=== PATIENT | male | born 1965 | race Caucasian/White ===

== ENCOUNTER 2016-05-29 12:22 | Emergency (ER) | payer OTHER ==
[2016-05-29] MEDS ORDERED: NICOTINE 21 MG/24 HR PATCH.TD24 TD ONE (13:38)
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
[2016-05-29] MEDS ORDERED: AMPICILLIN SOD/SULBACTAM 3 GM VIAL IV ONE (13:44)
[2016-05-29 13:55] LABS: APPEARANCE,URINE CLEAR; BILIRUBIN,URINE NEGATIVE (NEGATIVE); GLUCOSE, URINE NEGATIVE (NEGATIVE); KETONES,URINE NEGATIVE (NEGATIVE); LEUKOCYTE ESTERASE,URINE TRACE (NEGATIVE); NITRITE,URINE NEGATIVE (NEGATIVE); PROTEIN,URINE NEGATIVE (NEGATIVE); URINE SPECIFIC GRAVITY 1.011; UROBILINOGEN,URINE NEGATIVE mg/dL (<2.0)
[2016-05-29 13:58] LABS: ABSOLUTE BASOPHILS # (AUTO) 0.1 10^3/uL (0.0-0.2); ABSOLUTE EOSINOPHILS # (AUTO) 0.3 10^3/uL (0.0-0.6); ABSOLUTE LYMPHOCYTES (AUTO) 3.5 10^3/uL (0.5-4.7); ABSOLUTE MONOCYTES (AUTO) 0.7 10^3/uL (0.1-1.4); ABSOLUTE NEUT (AUTO) 7.1 10^3/uL (1.7-8.2); BASOPHILS % (AUTO) 0.6 % (0-2); EOSINOPHILS % (AUTO) 2.4 % (0-6); HEMATOCRIT 45.9 % (37.9-51.0); HEMOGLOBIN 15.2 g/dL (13.5-17.0); HGB HCT DIFFERENCE -0.3; LYMPHOCYTES % (AUTO) 29.9 % (13-45); MEAN CORPUSCULAR HEMOGLOBIN 28.1 pg (27.0-33.4); MEAN CORPUSCULAR HGB CONC 33.2 g/dL (32.0-36.0); MEAN CORPUSCULAR VOLUME 85 fl (80-97); MONOCYTES % (AUTO) 5.9 % (3-13); RED BLOOD COUNT 5.42 10^6/uL (4.35-5.55); RED CELL DISTRIBUTION WIDTH 16.2 % (11.5-14.0); SEGMENTED NEUTROPHILS % (AUTO) 61.2 % (42-78); WHITE BLOOD COUNT 11.5 10^3/uL (4.0-10.5)
[2016-05-29 14:05] LABS: URINE BARBITURATES SCREEN NEGATIVE; URINE OPIATES LOW NEGATIVE; URINE PHENCYCLIDINE SCREEN NEGATIVE
[2016-05-29 14:08] LABS: URINE METHADONE SCREEN NEGATIVE
[2016-05-29 14:12] LABS: ALANINE AMINOTRANSFERASE 26 U/L (21-72); ALBUMIN 4.2 g/dL (3.5-5.0); ALKALINE PHOSPHATASE 95 U/L (38-126); ANION GAP 12 (5-19); ASPARTATE AMINO TRANSFERASE 19 U/L (17-59); BILIRUBIN,TOTAL 0.7 mg/dL (0.2-1.3); BLOOD UREA NITROGEN 9 mg/dL (7-20); CALCIUM 9.7 mg/dL (8.4-10.2); CARBON DIOXIDE 26 mmol/L (22-30); CHLORIDE 104 mmol/L (98-107); CREATININE RESULT 0.85 mg/dL (0.52-1.25); GLUCOSE 98 mg/dL (75-110); POTASSIUM 4.2 mmol/L (3.6-5.0); SODIUM 141.9 mmol/L (137-145); TOTAL PROTEIN 7.1 g/dL (6.3-8.2)
[2016-05-29 14:13] LABS: ALCOHOL < 10 mg/dL (NONE DETECTED)
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
[2016-05-29] MEDS ORDERED: OLANZAPINE 5 MG TAB.RAPDIS PO ONE (15:33)
[2016-05-29] MEDS: LEVETIRACETAM 500 MG TABLET PO SCH (18:48)
--- NOTE | 2016-05-29 20:14 | EKG REPORT ---
SEVERITY:- ABNORMAL ECG - SINUS RHYTHM PROBABLE INFERIOR INFARCT, AGE INDETERMINATE NONSPECIFIC ANTEROLATERAL ST-T CHANGES. : Confirmed by: Spike Spaulding MD 29-May-2016 20:13:47
[2016-05-29] MEDS ORDERED: QUETIAPINE FUMARATE 25 MG TABLET PO SCH (22:00)
[2016-05-30] MEDS ORDERED: IBUPROFEN 600 MG TABLET PO ONE (01:23)
[2016-05-30] MEDS ORDERED: VENLAFAXINE HCL 75 MG TABLET PO SCH (10:00)
[2016-05-30] MEDS: OLANZAPINE 5 MG TAB.RAPDIS PO PRN ×4 (10:15→18:22)
[2016-05-30] MEDS: LEVETIRACETAM 500 MG TABLET PO SCH ×2 (10:19→18:21)
[2016-05-30] MEDS: METHADONE HCL 10 MG TABLET PO SCH ×3 (10:20→18:21)
[2016-05-30] MEDS ORDERED: CLONIDINE HCL 0.1 MG TABLET PO ONE (12:33)
[2016-05-30 19:21] VITALS: BP 161/98
== END 2016-05-30 19:05 | disposition home or self-care (01) ==
LOC: ER 12:22
DX: R45.851 Suicidal ideations (principal); R45.4 Irritability and anger; F32.9 Major depressive disorder, single episode, unspecified; F11.99 Opioid use, unspecified with unspecified opioid-induced disorder; G89.4 Chronic pain syndrome; F17.210 Nicotine dependence, cigarettes, uncomplicated; F43.10 Post-traumatic stress disorder, unspecified; I10 Essential (primary) hypertension; Z87.442 Personal history of urinary calculi
CPT/HCPCS: 93005; 99285; 36415; 80307 ×4; 85025; 80053; 81001; 93010; J3490 ×2

== ENCOUNTER 2016-06-07 19:39 | Emergency (ER) | payer OTHER ==
[2016-06-07 21:08] LABS: APPEARANCE,URINE CLEAR; BILIRUBIN,URINE NEGATIVE (NEGATIVE); GLUCOSE, URINE NEGATIVE (NEGATIVE); KETONES,URINE NEGATIVE (NEGATIVE); LEUKOCYTE ESTERASE,URINE TRACE (NEGATIVE); NITRITE,URINE NEGATIVE (NEGATIVE); PROTEIN,URINE NEGATIVE (NEGATIVE); URINE SPECIFIC GRAVITY 1.003; UROBILINOGEN,URINE NEGATIVE mg/dL (<2.0)
[2016-06-07 21:23] LABS: URINE BARBITURATES SCREEN NEGATIVE; URINE METHADONE SCREEN NEGATIVE; URINE OPIATES LOW NEGATIVE; URINE PHENCYCLIDINE SCREEN NEGATIVE
[2016-06-07 21:49] LABS: ABSOLUTE BASOPHILS # (AUTO) 0.2 10^3/uL (0.0-0.2); ABSOLUTE EOSINOPHILS # (AUTO) 0.4 10^3/uL (0.0-0.6); ABSOLUTE LYMPHOCYTES (AUTO) 4.5 10^3/uL (0.5-4.7); ABSOLUTE NEUT (AUTO) 8.3 10^3/uL (1.7-8.2); BASOPHILS % (AUTO) 1.2 % (0-2); HEMATOCRIT 42.9 % (37.9-51.0); HEMOGLOBIN 14.4 g/dL (13.5-17.0); HGB HCT DIFFERENCE 0.3; LYMPHOCYTES % (AUTO) 31.1 % (13-45); MEAN CORPUSCULAR HEMOGLOBIN 28.3 pg (27.0-33.4); MEAN CORPUSCULAR HGB CONC 33.5 g/dL (32.0-36.0); MEAN CORPUSCULAR VOLUME 84 fl (80-97); RED BLOOD COUNT 5.08 10^6/uL (4.35-5.55); RED CELL DISTRIBUTION WIDTH 15.8 % (11.5-14.0); SEGMENTED NEUTROPHILS % (AUTO) 57.7 % (42-78); WHITE BLOOD COUNT 14.3 10^3/uL (4.0-10.5)
[2016-06-07 22:07] LABS: ALANINE AMINOTRANSFERASE 30 U/L (21-72); ALBUMIN 4.2 g/dL (3.5-5.0); ALKALINE PHOSPHATASE 102 U/L (38-126); ANION GAP 11 (5-19); ASPARTATE AMINO TRANSFERASE 20 U/L (17-59); BLOOD UREA NITROGEN 6 mg/dL (7-20); CALCIUM 9.7 mg/dL (8.4-10.2); CARBON DIOXIDE 25 mmol/L (22-30); CHLORIDE 107 mmol/L (98-107); CREATININE RESULT 0.75 mg/dL (0.52-1.25); GLUCOSE 80 mg/dL (75-110); POTASSIUM 3.6 mmol/L (3.6-5.0); SODIUM 143.4 mmol/L (137-145); TOTAL PROTEIN 7.2 g/dL (6.3-8.2)
[2016-06-07 22:10] LABS: ALCOHOL < 10 mg/dL (NONE DETECTED)
--- NOTE | 2016-06-08 00:01 | ER Document Report ---
ED Psych Disorder / Suicide - General Chief Complaint: Psych Problem Stated Complaint: IVC W/PAPERS Time seen by provider: 00:01 Mode of Arrival: Ambulatory Information source: Patient TRAVEL OUTSIDE OF THE [place] IN LAST 30 DAYS: No - HPI Patient complains to provider of: Suicidal ideation Onset was: Cannot confirm Quality of pain: Achy Severity: Mild Suicide Risk Factors: Chronic illness, Depressed, Male Normal mood: No Associated symptoms: Angry, Decreased appetite, Depressed Recently seen / treated by doctor: Yes Notes: Patient is a 51-year-old male who was brought to the emergency room on involuntary commitment paperwork that was completed by his psychologist, stating that he continues to exhibit emotional dysregulation and suicidal ideation. He reports sitting in his vehicle with loaded rifle in his lap. Strunk presented today for scheduled appointment for medication review. continued to report suicidal thoughts, plan, and intent. Reporting "I' m done", patient admits to these statements, he denies any active suicidal ideation or plan, just states that he's done, he is fed up, and he doesn't care what happens to him - Related Data Allergies/Adverse Reactions: fentanyl Allergy (Verified 02/29/16 16:43) promethazine HCl [From Phenergan] Allergy (Verified 11/14/13 12:30) Home Medications: Current Home Medications Quetiapine Fumarate [Seroquel] 200 mg PO QHS 06/07/16 [History] Past Medical History - General Information source: Patient, Outside Facility Records - Social History Smoking Status: Current Every Day Smoker Family History: None - Past Medical History Cardiac Medical History: Reports: Hx Hypertension Renal/ Medical History: Reports: Hx Kidney Stones Psychiatric Medical History: Reports: Hx Anxiety, Hx Depression Past Surgical History: Reports: Hx Orthopedic Surgery - right knee, left shoulder, low back - Immunizations Hx Diphtheria, Pertussis, Tetanus Vaccination: Yes Review of Systems - Review of Systems Constitutional: No symptoms reported EENT: No symptoms reported Cardiovascular: No symptoms reported Respiratory: No symptoms reported Gastrointestinal: No symptoms reported Genitourinary: No symptoms reported Male Genitourinary: No symptoms reported Musculoskeletal: No symptoms reported Skin: No symptoms reported Hematologic/Lymphatic: No symptoms reported Neurological/Psychological: See HPI -: Yes All other systems reviewed and negative Physical Exam - Vital signs Vitals: Temp Pulse Resp BP Pulse Ox 98.0 F 82 18 164/117 H 99 03/10/17 20:07 06/07/16 20:07 06/07/16 20:07 06/07/16 20:07 06/07/16 20:07 Interpretation: Hypertensive - General General appearance: Appears well, Alert - HEENT Head: Normocephalic, Atraumatic Eyes: Normal Pupils: PERRL - Respiratory Respiratory status: No respiratory distress Chest status: Nontender Breath sounds: Normal Chest palpation: Normal - Cardiovascular Rhythm: Regular Heart sounds: Normal auscultation Murmur: No - Abdominal Inspection: Normal Distension: No distension Bowel sounds: Normal Tenderness: Nontender Organomegaly: No organomegaly - Back Back: Normal, Nontender - Extremities General upper extremity: Normal inspection, Nontender, Normal color, Normal ROM , Normal temperature General lower extremity: Normal inspection, Nontender, Normal color, Normal ROM , Normal temperature, Normal weight bearing. No: Dotty's sign - Neurological Neuro grossly intact: Yes Cognition: Normal Orientation: AAOx4 [place] Coma Scale Eye Opening: Spontaneous [place] Coma Scale Verbal: Oriented Kenzie Coma Scale Motor: Obeys Commands [place] Coma Scale Total: 15 Speech: Normal Motor strength normal: LUE, RUE, LLE, RLE Sensory: Normal - Psychological Associated symptoms: Angry, Depressed - Skin Skin Temperature: Warm Skin Moisture: Dry Skin Color: Normal Course - Re-evaluation Re-evalutation: 06/08/16 04:00 Patient was brought to emergency room on IVC papers were completed by his psychologist, patient does report that team doesn't care what happens to him, and he no longer cares to live, reports that he will stop taking his medications in order to expedite this basically, although he has no active suicidal plan, he is slightly angry, with pressured speech at time of evaluation , but overall cooperative and agreeable to staying in the emergency room for further evaluation and treatment by mental health team, he is otherwise medically stable for transfer or discharge - Vital Signs Vital signs: Temp Pulse Resp BP Pulse Ox 98.0 F 82 18 164/117 H 99 06/07/16 20:07 06/07/16 20:07 06/07/16 20:07 06/07/16 20:07 06/07/16 20:07 - Laboratory Result Diagrams: 06/07/16 21:30 06/07/16 21:30 Laboratory results interpreted by me: 06/07/16 06/07/16 06/07/16 20:40 21:30 21:30 WBC 14.3 H RDW 15.8 H Absolute Neutrophils 8.3 H BUN 6 L Ur Leukocyte Esterase TRACE H Salicylates < 1.0 L Acetaminophen < 10 L Discharge - Discharge Clinical Impression: Suicidal ideation Depression Qualifiers: Depression Type: unspecified Qualified Code(s): F32.9 - Major depressive disorder, single episode, unspecified Condition: Stable Disposition: PSYCH HOSP/UNIT
[2016-06-08] MEDS ORDERED: LORAZEPAM 1 MG TABLET PO ONE (02:35)
[2016-06-08] MEDS: METOPROLOL SUCCINATE 50 MG TAB.SR.24H PO SCH ×2 (08:04→18:20)
[2016-06-08] MEDS: HYDROCHLOROTHIAZIDE 12.5 MG CAPSULE PO SCH (08:04)
[2016-06-08] MEDS: LEVETIRACETAM 500 MG TABLET PO SCH ×2 (10:22→18:20)
--- NOTE | 2016-06-08 10:49 | EKG REPORT ---
SEVERITY:- ABNORMAL ECG - SINUS RHYTHM VENTRICULAR PREMATURE COMPLEX PROBABLE INFERIOR INFARCT, AGE INDETERMINATE : Confirmed by: Sadiq Robles 08-Jun-2016 10:48:08
--- NOTE | 2016-06-08 11:15 | PSYCHOLOGICAL NOTE ---
Psych Note - Psych Note Psych Note: Patient is a 51-year-old male who was brought to the emergency room on involuntary commitment paperwork that was completed by his psychologist, stating that he continues to exhibit emotional dysregulation and suicidal ideation. He reports sitting in his vehicle with loaded rifle in his lap. presented today for scheduled appointment for medication review. Watkins continued to report suicidal thoughts, plan, and intent. Reporting "I' m done", patient admits to these statements, he denies any active suicidal ideation or plan, just states that he's done, he is fed up, and he doesn't care what happens to him. Patient states that he is in a "black hole" and that it is "killing me." He continued to state that he was doing well last week when he was taking Valium and for the first time in 2 years was intimate with his but he has ran out. HE continued to disclose that he does not understand why is it an issue for his to get the medication even thought it is a narcotic is it works. The patient was unable or unwilling to understand this is part of his addiction. The patient states that he will give everyone 2 weeks and he will try but if it doesn't work he will just sell his stuff, leave his and move back to [place] to "end it." Patient is alert and orientated to person place time and circumstance. Mood is irritable with tear affect. Patient endorses suicidal ideation denies homicidal ideation. Patient denies auditory and visual hallucinations; no delusions are noted. Thought process is organized and linear; thought content is consumed with patient's reported pain and medication. Conversational speech was loud and aggressive at times. Eye contact was well maintained. Intellectual abilities appear to be within average range. Attention and concentration are fair. Insight, judgment, impulse control are poor. 309.81 (F 43.10) [facility] 300[facility]02 (F41.1) generalized Anxiety Disorder [facility] 296.33 (F 33.2) major depressive disorder; severe; recurrent [facility] by [facility] R/O 292.9 ( F11.99) Unspecified Opiate Related Disorder Impression\\plan: Patient is recommended to continue under IVC; patient is a danger to himself and others at this time. Patient endorses suicidal ideation and has previous attempts. Patient is recommended for placement for inpatient treatment. Dr. Guajardo was consult on the care and management of this patient; Attending physician is in agreement with recommendations and disposition.
--- NOTE | 2016-06-08 17:54 | ER Document Report ---
Doctor's Note Notes: 06/08/16 17:50 This is a 51-year-old man with a history of PTSD and depression who resented to the emergency room with suicidal ideation and he has access to weapons. He is currently followed by psychiatry and we are awaiting an inpatient psychiatric bed. Patient has been anxious on interview. But he calms down after sitting down and talk with him. I think inpatient admission is a good plan for him. 06/08/16 18:04
[2016-06-08] MEDS: HYDROXYZINE PAMOATE 50 MG CAPSULE PO PRN (18:20)
[2016-06-08] MEDS ORDERED: NICOTINE 21 MG/24 HR PATCH.TD24 TD ONE (19:27)
[2016-06-08] MEDS ORDERED: LISINOPRIL 10 MG TABLET PO SCH (20:15)
[2016-06-08] MEDS ORDERED: LISINOPRIL 10 MG TABLET PO ONE (20:30)
[2016-06-08] MEDS ORDERED: TRAZODONE HCL 50 MG TABLET PO SCH (22:00)
[2016-06-08] MEDS: BUSPIRONE HCL 10 MG TABLET PO SCH (22:43)
[2016-06-08] MEDS: VENLAFAXINE HCL 37.5 MG CAP.SR.24H PO SCH (22:43)
[2016-06-09] MEDS ORDERED: LORAZEPAM 1 MG TABLET PO ONE (06:10)
[2016-06-09] MEDS ORDERED: ONDANSETRON HCL INJ/PF 4 MG/2 ML SDV IV ONE (06:10)
--- NOTE | 2016-06-09 06:11 | ER Document Report ---
Doctor's Note Notes: 06/09/16 06:10 No skin formula the patient woke up and started vomiting. I did go evaluate the patient. Patient says that he's been very anxious. Says he woke up more anxious. He says all this anxiety has led to him becoming very nauseous. He denies any pain. Denies any recent fevers or infections. I did palpate his abdomen. He has reproducible pain. His abdomen is soft and nontender. He otherwise looks well. I will give him a dose of Zofran and also Ativan hopefully help calm down his symptoms.
[2016-06-09] MEDS ORDERED: ONDANSETRON 4 MG TAB.RAPDIS PO ONE (06:15)
--- NOTE | 2016-06-09 09:15 | ER Document Report ---
Doctor's Note Notes: 06/09/16 09:14 Chart reviewed. This is a 51-year-old man with a history of PTSD and depression who resented to the emergency room with suicidal ideation. He is currently followed by psychiatry and we are awaiting an inpatient psychiatric bed. He states that he had some disturbing dreams last night and awoke with dry heaves. He was treated with Zofran and states he is feeling much better now, he tolerated his breakfast without difficulty. Overall he states he is much improved and he denies any current suicidal ideation. However given the circumstances of his presentation and his access to weapons he is still under IVC and will be re-evaluated by psychiatry this morning.
[2016-06-09] MEDS: METOPROLOL SUCCINATE 50 MG TAB.SR.24H PO SCH ×2 (09:36→17:54)
[2016-06-09] MEDS: LEVETIRACETAM 500 MG TABLET PO SCH ×2 (09:38→18:00)
[2016-06-09] MEDS: LISINOPRIL 10 MG TABLET PO SCH (09:38)
[2016-06-09] MEDS: HYDROCHLOROTHIAZIDE 12.5 MG CAPSULE PO SCH (09:39)
[2016-06-09] MEDS: HYDROXYZINE PAMOATE 50 MG CAPSULE PO PRN ×2 (14:43→20:34)
[2016-06-09] MEDS ORDERED: NICOTINE 21 MG/24 HR PATCH.TD24 TD ONE (16:32)
--- NOTE | 2016-06-09 16:46 | PSYCHOLOGICAL NOTE ---
Psych Note - Psych Note Psych Note: Conducted check in with patient who is a 51 year old male under IVC at [facility] due to suicidal ideations, intent, plan, and means. Patient was reportedly in his vehicle with a loaded weapon with the plan to shoot himself. Patient today states that was not the case and that the [facility] the [facility] misunderstood. Patient maintains that he keeps a [id number] shot gun in his truck because a[place], and B) because there is a crocodile in the pond behind the house where his granddaughter plays and he is trying to kill it. Patient states he has every reason in the world to live, to include his and custody of his 4 year old granddaughter. Patient states he has resided here in the area for a few years, and relocated from [place]. Patient states initially he commuted back and forth to the [facility] in [place] in attempt at avoiding starting over with this VA here; however, states he ultimately did and has found them very helpful. Patient states he has struggled with the decreased doses of Methadone, which he states has been prescribed to him post bilateral knee surgeries 7 years ago by the [facility]. Patient denies suicidal/homicidal ideations. Patient talks extensively about his father's and finding him. He talks about his grief, nightmares and anxiety. Patient is A&O. Mood is euthymic at times and sad at times with tearful affect when discussing his father's . Patient denies suicidal/homicidal ideations intent, plan, or means. Patient denies A/V H; delusions not noted. Thought processes were organized, but also goal oriented towards medication to address what he is referring to as withdrawal, and also towards discharge. Conversational speech was WNL for rate, tone, and prosody. Intellectual abilities were estimated within average range. Attention and focus were fair. Insight, judgment, and impulse control were poor-fair. 309.81 (F 43.10) Posttraumatic Stress Disorder per history provided by [facility] 300.02 (F41.1) generalized Anxiety Disorder per history provided by [facility] 296.33 (F 33.2) major depressive disorder; severe; recurrent per history provided by VA R/O 292.9 ( F11.99) Unspecified Opiate Related Disorder Patient is recommended to continue under IVC for additional observation and coordination of services with the VA. Patient today denies suicidal ideations; however, has maintained SI with means and intent with his VA liaisons. I consulted with Dr. Guajardo in regards to the care and management of this patient. EDIN is in agreement with disposition and recommendations.
[2016-06-09] MEDS: BUSPIRONE HCL 10 MG TABLET PO SCH (22:24)
[2016-06-09] MEDS: VENLAFAXINE HCL 37.5 MG CAP.SR.24H PO SCH (22:24)
[2016-06-10] MEDS: LISINOPRIL 10 MG TABLET PO SCH (09:26)
[2016-06-10] MEDS: LEVETIRACETAM 500 MG TABLET PO SCH (09:26)
[2016-06-10] MEDS: METOPROLOL SUCCINATE 50 MG TAB.SR.24H PO SCH (09:27)
[2016-06-10] MEDS: HYDROCHLOROTHIAZIDE 12.5 MG CAPSULE PO SCH (09:28)
[2016-06-10 09:30] VITALS: BP 164/110
--- NOTE | 2016-06-10 09:45 | ER Document Report ---
Doctor's Note Notes: 06/10/16 09:42 Rounds: Chart reviewed and patient interviewed. Patient says he does not feel suicidal this morning. Has had thoughts frequently of late, but says he and his have custody of their 4-year-old grandchild and he loves the grandchild very much and wouldn't do anything to hurt her or his . Patient thinks the Brother we've started him on is helping him feel better. Labs were all normal except for a white count of 14,300. There is no significant shift in the distribution. Patient does not have any symptoms of infection anywhere. Patient appears medically stable for transfer or discharge. Dylan Rose M.D.
--- NOTE | 2016-06-10 11:36 | PSYCHOLOGICAL NOTE ---
Psych Note - Psych Note Psych Note: Conducted check in with patient who is a 51 year old male under IVC at [facility] ED for reporting SI to [facility] the [facility]. Patient as of yesterday denied SI, and continues to deny SI today. Patient states his preference to is follow up with the VA and resume his care via his VA team. Patient's , Maribell Juarez : states he sounds good to her. She states her understanding of why he is here is because he threatened suicide. She states he has not previously threatened suicide to her. She states he gets upset when things do not go his way, etc. She clarifies that he gets upset when he doesn't have his drugs (Methadone) but does not threaten to harm himself or anyone else. She states she is not sure what exactly he said to the [facility]. is in agreement that the patient is safe, but also specifies that she will remove any weapons from the home, and monitor all medications in the home out of a locked box. is specific to state that since he has been cut off of the Methadone and pain medication from the [facility], there really isn't an issue. did corroborate that there is a crocodile in the pond behind the house, but denies that there is a shotgun in his truck. did state that she would search the home and vehicle to remove any weapons. [place] Suicide Prevention: Branden Goldstein states: the outpatient clinic is available to him, as well as a substance abuse assessment. He states he got him an assessment early; however, scheduling the assessment usually takes about 2-3 months. Mr. Goldstein did state he could see the patient immediately upon discharge from this ED. Patient is A&O. Mood is euthymic with normal/smiling affect. Patient denies suicidal/homicidal ideations, intent, plan, or means. Patient denies A/V H; delusions not noted. Thought processes were organized and goal oriented towards discharge. Patient thus far today has not sought pain medications or benzos; however, overnight and throughout yesterday was focused on these drugs. Conversational speech was WNl for rate, tone, and prosody. Intellectual abilities were estimated within average range. Attention and focus were fair. Insight, judgment, and impulse control were fair. 309.81 (F 43.10) Posttraumatic Stress Disorder per history provided by [facility] 300.02 (F41.1) generalized Anxiety Disorder per history provided by [facility] 296.33 (F 33.2) major depressive disorder; severe; recurrent per history provided by VA R/O 292.9 ( F11.99) Unspecified Opiate Related Disorder Patient is psychiatrically cleared for and recommended for rescind IVC to present directly [facility] the [facility] to meet with Mr. Branden Goldstein who will assist in coordinating care. Patent no longer meets criteria for IVC as he denies SI. Patient continues to deny there was ever suicidal statements made to the VA, despite this documented event. Patient's states she has no concerns for patient's safety; however, is in agreement to remove any weapons and monitor medications from a locked box. I consulted with Dr. Guajardo in regards to the care and management of this patient. ED MD is in agreement with disposition and recommendations.
== END 2016-06-10 12:04 | disposition home or self-care (01) ==
LOC: ER 19:39
DX: F32.9 Major depressive disorder, single episode, unspecified (principal); R45.851 Suicidal ideations; F41.9 Anxiety disorder, unspecified; R11.2 Nausea with vomiting, unspecified; R63.0 Anorexia; I10 Essential (primary) hypertension; Z88.5 Allergy status to narcotic agent; Z88.8 Allergy status to other drugs, medicaments and biological substances
CPT/HCPCS: 93005; 99285; 36415; 80177; 80307 ×4; 85025; 80053; 81001; 93010; J3490 ×2; S0119

== ENCOUNTER 2016-08-06 14:27 | Emergency (ER) | payer OTHER ==
--- NOTE | 2016-08-06 16:09 | ER Document Report ---
ED Medical Screen (RME) - General Chief Complaint: Epigastric Pain Stated Complaint: ABDOMINAL PAIN Time Seen by Provider: 08/06/16 16:08 Mode of Arrival: Ambulatory Information source: Patient Notes: The patient is a 51-year-old man with a history of hypertension and depression who is referred to the ER for 2 week history of right lower quadrant abdominal pain. Patient states is no exacerbating or relieving factors. He denies any fever. He denies any blood in his stool. Past surgical history: Back, knee, shoulder surgery Allergies: Phenergan, tramadol and fentanyl Past medical history: Hypertension, depression medicines: Prozac, metoprolol, lisinopril, amlodipine TRAVEL OUTSIDE OF THE [place]. IN LAST 30 DAYS: No - Related Data Allergies/Adverse Reactions: fentanyl Allergy (Verified 08/06/16 15:37) promethazine HCl [From Phenergan] Allergy (Verified 08/06/16 15:37) tramadol Allergy (Verified 08/06/16 15:37) Past Medical History - Past Medical History Cardiac Medical History: Reports: Hx Hypertension Renal/ Medical History: Reports: Hx Kidney Stones. Denies: Hx Peritoneal Dialysis Psychiatric Medical History: Reports: Hx Anxiety, Hx Depression Past Surgical History: Reports: Hx Orthopedic Surgery - right knee, left shoulder, low back - Immunizations Hx Diphtheria, Pertussis, Tetanus Vaccination: Yes Physical Exam - Vital signs Vitals: Temp Pulse Resp BP Pulse Ox 98.4 F 77 16 157/103 H 99 08/06/16 14:44 08/06/16 14:44 08/06/16 14:44 08/06/16 14:44 08/06/16 14:44 Course - Vital Signs Vital signs: Temp Pulse Resp BP Pulse Ox 98.4 F 77 16 157/103 H 99 08/06/16 14:44 08/06/16 14:44 08/06/16 14:44 08/06/16 14:44 08/06/16 14:44
--- NOTE | 2016-08-06 17:02 | ER Document Report ---
ED GI/ - General Mode of Arrival: Ambulatory Information source: Patient TRAVEL OUTSIDE OF THE U.S. IN LAST 30 DAYS: No - HPI Patient complains to provider of: Abdominal pain - RLQ Onset: Other - 2 weeks ago Location: RLQ Associated symptoms: Other - see notes above <SERAFIN MEJIA - Last Filed: 08/06/16 16:58> <IVANIA GONZALEZ - Last Filed: 08/06/16 20:33> - General Chief Complaint: Epigastric Pain Stated Complaint: ABDOMINAL PAIN Time Seen by Provider: 08/06/16 16:08 Notes: 51 duran pate male with history of depression and hypertension presents to the ED complaining of dull and achy RLQ abdominal pain that started 2 weeks ago and has been getting progressively worse. Patient reports that the pain does not hinder him from sleeping as long as he doesn't roll on his right side. Patient also reports that he feels distended. (SERAFIN MEJIA) - Related Data Allergies/Adverse Reactions: fentanyl Allergy (Verified 08/06/16 15:37) promethazine HCl [From Phenergan] Allergy (Verified 08/06/16 15:37) tramadol Allergy (Verified 08/06/16 15:37) Past Medical History - General Information source: Patient - Social History Smoking Status: Current Every Day Smoker Cigarette use (# per day): Yes - 0.25 ppd Frequency of alcohol use: Occasional Family History: None Patient has suicidal ideation: No Patient has homicidal ideation: No - Past Medical History Cardiac Medical History: Reports: Hx Hypertension Renal/ Medical History: Reports: Hx Kidney Stones. Denies: Hx Peritoneal Dialysis Psychiatric Medical History: Reports: Hx Anxiety, Hx Depression Past Surgical History: Reports: Hx Orthopedic Surgery - right knee, left shoulder, low back - Immunizations Hx Diphtheria, Pertussis, Tetanus Vaccination: Yes <SERAFIN MEJIA - Last Filed: 08/06/16 16:58> Review of Systems - Review of Systems Constitutional: No symptoms reported EENT: No symptoms reported Cardiovascular: No symptoms reported Respiratory: No symptoms reported Gastrointestinal: See HPI, Abdomen distended, Abdominal pain - RLQ Genitourinary: No symptoms reported Male Genitourinary: No symptoms reported Musculoskeletal: No symptoms reported Skin: No symptoms reported Hematologic/Lymphatic: No symptoms reported Neurological/Psychological: No symptoms reported -: Yes All other systems reviewed and negative <SERAFIN MEJIA - Last Filed: 08/06/16 16:58> Physical Exam - General General appearance: Alert In distress: None - HEENT Head: Normocephalic, Atraumatic Eyes: Normal Extraocular movements intact: Yes Pupils: PERRL - Respiratory Respiratory status: No respiratory distress Breath sounds: Normal - Cardiovascular Rhythm: Regular Heart sounds: Normal auscultation - Abdominal Inspection: Other - umbilical hernia that is easily reducible Distension: No distension Bowel sounds: Normal Tenderness: Tender - Vague discomfort when abdomen is palpated. - Back Back: Normal - Extremities General upper extremity: Normal inspection, Normal ROM General lower extremity: Normal inspection, Normal ROM - Neurological Neuro grossly intact: Yes - Psychological Associated symptoms: Normal affect, Normal mood - Skin Skin Temperature: Warm Skin Moisture: Dry Skin Color: Normal <SERAFIN MEJIA - Last Filed: 08/06/16 16:58> Course <ROBERTOSERAFIN - Last Filed: 08/06/16 16:58> - Laboratory Result Diagrams: 08/06/16 18:50 08/06/16 18:50 - Diagnostic Test Radiology reviewed: Image reviewed, Reports reviewed - Double contrast CT scan of abdomen and pelvis is unremarkable. <IVANIA GONZALEZ - Last Filed: 08/06/16 20:33> - Re-evaluation Re-evalutation: 08/06/16 20:29 Reexam after the negative CT scan suggests the pain is coming from the anterior lateral and lateral right lower quadrant muscle wall. (IVANIA GONZALEZ) - Vital Signs Vital signs: Temp Pulse Resp BP Pulse Ox 98.4 F 77 16 157/103 H 99 08/06/16 14:44 08/06/16 14:44 08/06/16 14:44 08/06/16 14:44 08/06/16 14:44 - Laboratory Laboratory results interpreted by me: 08/06/16 08/06/16 18:50 18:50 WBC 15.5 H RDW 15.8 H Absolute Neutrophils 10.7 H Ur Leukocyte Esterase TRACE H Discharge <SERAFIN MEJIA - Last Filed: 08/06/16 16:58> <IVANIA GONZALEZ - Last Filed: 08/06/16 20:33> - Discharge Clinical Impression: Right lower quadrant abdominal pain Condition: Stable Disposition: HOME, SELF-CARE Additional Instructions: Abdominal Pain: There are many causes of abdominal pain. Pain can mean a serious problem requiring surgery (such as appendicitis). It can also be an innocent problem that goes away on its own (such as a viral infection). Often, time must pass to determine the cause of pain. The physician does not feel that hospitalization is necessary, at present. Things may change within the next 24 hours. Call the doctor or come back for re- examination if any problems occur, such as: (1) Pain that becomes more severe, steady, or becomes concentrated in one specific area. Also, pain that is more severe with movement or coughing. (2) Vomiting that persists or becomes more frequent. (3) Blood in the vomitus, urine, or bowel movements. Blood in the stool may have a tarry or black appearance. (4) Shaking chills or fever greater than 100 degrees F. (5) The abdomen becomes more distended or swollen. (6) Bowel movements cease. (7) Failure to improve as expected. FOLLOW UP WITH YOUR DOCTOR IF NOT IMPROVING. RETURN TO THE EMERGENCY ROOM IF ANY NEW OR WORSENING SYMPTOMS. Referrals: ROSITA PIERCE MD [Primary Care Provider] - Follow up as needed Scribe Attestation: 08/06/16 20:33 I personally performed the services described in the documentation, reviewed and edited the documentation which was dictated to the scribe in my presence, and it accurately records my words and actions. (IVANIA GONZALEZ) Scribe Documentation - Scribe Written by Rosy:: Rosy Raza, 08/06/2016 1702 acting as scribe for :: Elisabeth <SERAFIN MEJIA - Last Filed: 08/06/16 16:58>
[2016-08-06 19:01] LABS: ABSOLUTE BASOPHILS # (AUTO) 0.1 10^3/uL (0.0-0.2); ABSOLUTE EOSINOPHILS # (AUTO) 0.4 10^3/uL (0.0-0.6); ABSOLUTE LYMPHOCYTES (AUTO) 3.4 10^3/uL (0.5-4.7); ABSOLUTE NEUT (AUTO) 10.7 10^3/uL (1.7-8.2); BASOPHILS % (AUTO) 0.7 % (0-2); EOSINOPHILS % (AUTO) 2.7 % (0-6); HEMATOCRIT 48.2 % (37.9-51.0); HEMOGLOBIN 16.3 g/dL (13.5-17.0); HGB HCT DIFFERENCE 0.7; LYMPHOCYTES % (AUTO) 21.6 % (13-45); MEAN CORPUSCULAR HEMOGLOBIN 30.2 pg (27.0-33.4); MEAN CORPUSCULAR HGB CONC 33.8 g/dL (32.0-36.0); MEAN CORPUSCULAR VOLUME 89 fl (80-97); MONOCYTES % (AUTO) 6.1 % (3-13); RED BLOOD COUNT 5.39 10^6/uL (4.35-5.55); RED CELL DISTRIBUTION WIDTH 15.8 % (11.5-14.0); SEGMENTED NEUTROPHILS % (AUTO) 68.9 % (42-78); WHITE BLOOD COUNT 15.5 10^3/uL (4.0-10.5)
[2016-08-06 19:09] LABS: PROTHROMBIN TIME 12.9 SEC (11.4-15.4)
[2016-08-06 19:20] LABS: ALANINE AMINOTRANSFERASE 33 U/L (21-72); ALBUMIN 4.2 g/dL (3.5-5.0); ALKALINE PHOSPHATASE 100 U/L (38-126); ANION GAP 9 (5-19); ASPARTATE AMINO TRANSFERASE 27 U/L (17-59); BILIRUBIN,DIRECT 0.4 mg/dL (0.0-0.4); BILIRUBIN,TOTAL 0.7 mg/dL (0.2-1.3); BLOOD UREA NITROGEN 11 mg/dL (7-20); CALCIUM 9.5 mg/dL (8.4-10.2); CARBON DIOXIDE 26 mmol/L (22-30); CHLORIDE 103 mmol/L (98-107); GLUCOSE 91 mg/dL (75-110); SODIUM 137.9 mmol/L (137-145); TOTAL PROTEIN 7.6 g/dL (6.3-8.2)
[2016-08-06] MEDS ORDERED: NORMAL SALINE 1000 ML 1,000 ML IV ONE (19:34)
[2016-08-06 19:41] LABS: APPEARANCE,URINE CLEAR; BILIRUBIN,URINE NEGATIVE (NEGATIVE); GLUCOSE, URINE NEGATIVE (NEGATIVE); KETONES,URINE NEGATIVE (NEGATIVE); LEUKOCYTE ESTERASE,URINE TRACE (NEGATIVE); NITRITE,URINE NEGATIVE (NEGATIVE); PROTEIN,URINE NEGATIVE (NEGATIVE); URINE SPECIFIC GRAVITY 1.006; UROBILINOGEN,URINE NEGATIVE mg/dL (<2.0)
[2016-08-06 20:41] VITALS: BP 148/88
== END 2016-08-06 20:39 | disposition home or self-care (01) ==
LOC: ER 14:27
DX: R10.31 Right lower quadrant pain (principal); R14.0 Abdominal distension (gaseous); K46.9 Unspecified abdominal hernia without obstruction or gangrene; F17.210 Nicotine dependence, cigarettes, uncomplicated; I10 Essential (primary) hypertension; Z87.442 Personal history of urinary calculi
CPT/HCPCS: 99284; 96360; 36415; 85025; 85610; 80053; 81001; 74177; J7030

== ENCOUNTER 2016-10-19 15:58 | Emergency (ER) | payer OTHER ==
[2016-10-19 16:19] VITALS: BP 158/95
--- NOTE | 2016-10-19 17:11 | ER Document Report ---
ED Medical Screen (RME) - General Chief Complaint: Pain All Over Stated Complaint: DIFFICULTY BREATHING,BACK PAIN Time Seen by Provider: 10/19/16 16:56 Mode of Arrival: Ambulatory - W/ CANE Information source: Patient TRAVEL OUTSIDE OF THE [place] IN LAST 30 DAYS: No - HPI Onset: Yesterday - Edema and shortness of breath began yesterday. Has been having increasing difficulty with urination for approximately 1 week. Onset/Duration: Gradual Quality of pain: Dull, Pressure Severity: Moderate Associated Symptoms: Leg swelling, Shortness of breath, Other - URINARY HESITANCY AND PARTIAL RETENTION Exacerbated by: Standing Relieved by: Sitting Similar symptoms previously: No - SAYS PRESENT BACK PAIN IS DIFFERENT FROM USUAL Recently seen / treated by doctor: Yes - LAST WK, Rx FLOMAX, MINIMAL BENEFIT - Related Data Allergies/Adverse Reactions: fentanyl Allergy (Verified 08/06/16 15:37) promethazine HCl [From Phenergan] Allergy (Verified 08/06/16 15:37) tramadol Allergy (Verified 08/06/16 15:37) Past Medical History - General Information source: Patient - Social History Chew tobacco use (# tins/day): No Frequency of alcohol use: None Drug Abuse: None Lives with: Spouse/Significant other Family history: Reviewed & Not Pertinent - Past Medical History Cardiac Medical History: Reports: Hx Hypertension Pulmonary Medical History: Reports: None EENT Medical History: Reports: None Neurological Medical History: Reports: None Endocrine Medical History: Reports: None Renal/ Medical History: Reports: Hx Kidney Stones. Denies: Hx Peritoneal Dialysis Malignancy Medical History: Reports None GI Medical History: Reports: None Musculoskeltal Medical History: Reports Hx Arthritis - LOW BACK SURG. PLANNED IN 3 WKS Skin Medical History: Reports None Psychiatric Medical History: Reports: Hx Anxiety, Hx Depression - ANXIETY Past Surgical History: Reports: Hx Orthopedic Surgery - right knee, left shoulder, low back - Immunizations Hx Diphtheria, Pertussis, Tetanus Vaccination: Yes Review of Systems - Review of Systems Constitutional: No symptoms reported. denies: Chills, Diaphoresis, Fever EENT: No symptoms reported Cardiovascular: See HPI, Dyspnea, Edema Respiratory: See HPI Gastrointestinal: No symptoms reported Genitourinary: See HPI Musculoskeletal: See HPI Skin: No symptoms reported Neurological/Psychological: See HPI Physical Exam - Vital signs Vitals: Temp Pulse Resp BP Pulse Ox 98.1 F 84 20 158/95 H 95 10/19/16 16:14 10/19/16 16:14 10/19/16 16:14 10/19/16 16:14 10/19/16 16:14 Interpretation: Hypertensive. No: Tachycardic, Tachypneic, Febrile - General General appearance: Appears well, Alert In distress: None - HEENT Head: Normocephalic Eyes: Normal Conjunctiva: Normal Ears: Normal Nasal: Normal Mouth/Lips: Normal Mucous membranes: Normal - Respiratory Respiratory status: No respiratory distress - Cardiovascular Rhythm: Regular - Abdominal Inspection: Normal, Obese - Back Back: Normal, Nontender - Extremities General upper extremity: Normal inspection General lower extremity: Edema - Neurological Neuro grossly intact: Yes Cognition: Normal Orientation: AAOx4 - Psychological Associated symptoms: Normal affect, Normal mood - Skin Skin Temperature: Warm Skin Moisture: Dry Skin Color: Normal Skin Turgor: Elastic Course - Vital Signs Vital signs: Temp Pulse Resp BP Pulse Ox 98.1 F 84 20 158/95 H 95 10/19/16 16:14 10/19/16 16:14 10/19/16 16:14 10/19/16 16:14 10/19/16 16:14
--- NOTE | 2016-10-19 17:35 | ER Document Report ---
ED General - General Mode of Arrival: Ambulatory - W/ CANE TRAVEL OUTSIDE OF THE [place] IN LAST 30 DAYS: No - HPI Onset: Other - Refer to HPI notes <CHAPARRO ROBERTSON - Last Filed: 10/19/16 22:33> <CECELIAYULIYA - Last Filed: 10/20/16 22:54> - General Chief Complaint: Pain All Over Stated Complaint: DIFFICULTY BREATHING,BACK PAIN Time Seen by Provider: 10/19/16 16:56 Notes: Patient is a 51-year-old male presenting to the emergency department for back pain and lower extremity edema. Patient has some difficulty urinating which has been present for 1.5 months after getting an epidural. Patient is having increased lower extremity edema and low back pain which is chronic. Patient started taking flomax yesterday. Patient also complains of difficulty voiding but is able to urinate for a urine analysis. Patient denies any new injuries to his back. Patient is scheduled for surgery in 3 weeks to repair a ruptured disc in his lower back. Patient had an MRI completed about 1 month ago. Patient is taking Narco for pain but is not on a muscle relaxer. Patient's surgeon is Dr. Manning in [place], [place]. [facility] (CHAPARRO ROBERTSON) - Related Data Allergies/Adverse Reactions: fentanyl Allergy (Verified 08/06/16 15:37) promethazine HCl [From Phenergan] Allergy (Verified 08/06/16 15:37) tramadol Allergy (Verified 08/06/16 15:37) Past Medical History - General Information source: Patient - Social History Smoking Status: Current Every Day Smoker Chew tobacco use (# tins/day): No Frequency of alcohol use: None Drug Abuse: None Lives with: Spouse/Significant other Family History: None - Past Medical History Cardiac Medical History: Reports: Hx Hypertension Pulmonary Medical History: Reports: None EENT Medical History: Reports: None Neurological Medical History: Reports: None Endocrine Medical History: Reports: None Renal/ Medical History: Reports: Hx Kidney Stones. Denies: Hx Peritoneal Dialysis Malignancy Medical History: Reports None GI Medical History: Reports: None Musculoskeltal Medical History: Reports Hx Arthritis - LOW BACK SURG. PLANNED IN 3 WKS Skin Medical History: Reports None Psychiatric Medical History: Reports: Hx Anxiety, Hx Depression - ANXIETY Past Surgical History: Reports: Hx Orthopedic Surgery - right knee, left shoulder, low back - Immunizations Hx Diphtheria, Pertussis, Tetanus Vaccination: Yes <CHAPARRO ROBERTSON - Last Filed: 10/19/16 22:33> Review of Systems - Review of Systems Constitutional: No symptoms reported EENT: No symptoms reported Cardiovascular: No symptoms reported Respiratory: No symptoms reported Gastrointestinal: No symptoms reported Genitourinary: No symptoms reported Male Genitourinary: No symptoms reported Musculoskeletal: See HPI Skin: No symptoms reported Hematologic/Lymphatic: No symptoms reported Neurological/Psychological: No symptoms reported -: Yes All other systems reviewed and negative <CHAPARRO ROBERTSON - Last Filed: 10/19/16 22:33> Physical Exam <CHAPARRO ROBERTSON - Last Filed: 10/19/16 22:33> <YULIYA RAI - Last Filed: 10/20/16 22:54> - Vital signs Vitals: Temp Pulse Resp BP Pulse Ox 98.1 F 84 20 158/95 H 95 10/19/16 16:14 10/19/16 16:14 10/19/16 16:14 10/19/16 16:14 10/19/16 16:14 - Notes Notes: GENERAL: Alert, interacts well. No acute distress. HEAD: Normocephalic, atraumatic. EYES: Appear normal. Pupils equal, round, and reactive to light. ENT: Moist mucus membranes, tongue midline. NECK: Full range of motion. Supple. Trachea midline. LUNGS: Clear to auscultation bilaterally, no wheezes, rales, or rhonchi. No respiratory distress. HEART: Regular rate and rhythm. No murmurs, gallops, or rubs. ABDOMEN: Soft, non-tender. Non-distended. Normal bowel sounds. BACK: Paralumbar musculoskeletal tenderness to palpation bilaterally, no midline tenderness, negative straight leg test. EXTREMITIES: Moves all 4 extremities spontaneously. Normal strength. No edema. NEUROLOGICAL: Alert and oriented x3. Normal speech. No focal neurological deficits. GSC 15. Normal reflexes. PSYCH: Normal affect, normal mood. SKIN: Warm, dry, normal turgor. No rashes or lesions noted. Good capillary refill and good perfusion. (CHAPARRO ROBERTSON) Course - Laboratory Result Diagrams: 10/19/16 17:10 10/19/16 17:10 <CHAPARRO ROBERTSON - Last Filed: 10/19/16 22:33> - Laboratory Result Diagrams: 10/19/16 17:10 10/19/16 17:10 <YULIYA RAI - Last Filed: 10/20/16 22:54> - Re-evaluation Re-evalutation: 10/19/16 19:41 Presents to the emergency department chief complaint of swelling in his legs and back pain. He was initially seen at provider in triage and had an MRI of the thoracic and lumbar spine ordered. Patient was brought back to the emergency department where I quickly assessed him and evaluated him and he absolutely did not need an MRI of the spine. He has a history of 2-3 weeks of ankle and lower extremity swelling for which he seen his primary care physician he does not have a history of congestive heart failure or renal failure and is on Lasix. He says he is having back spasms. He had an MRI a month ago which showed herniated disc and he said he seeing a surgeon and pain management for possible repair. He describes the pain is not midline when he says urinary urgency that has been going on for months is not a new or different today and he was able to produce a full Full bottle of urine without any difficulty here he says he has no loss of bowel or bladder function he is not incontinent of stool. He is ambulatory with his cane. On examination well-appearing nontoxic no acute abdominal findings no midline cervical thoracic or lumbar tenderness Paralumbar musculoskeletal tenderness bilaterally not midline negative straight leg raise raise test reflex symmetrical 2. scrimmage capillary refill intact good perfusion. Acute labs do not show that he is in congestive heart failure renal failure to go ahead and give him a muscle relaxant which she is going to follow-up with his other physicians early next week and discussed reasons for ED return sooner (YULIYA RAI) - Vital Signs Vital signs: Temp Pulse Resp BP Pulse Ox 98.1 F 84 20 158/95 H 95 10/19/16 16:14 10/19/16 16:14 10/19/16 16:14 10/19/16 16:14 10/19/16 16:14 - Laboratory Laboratory results interpreted by me: 10/19/16 10/19/16 10/19/16 17:10 17:10 17:10 Seg Neutrophils % 40.4 L Eosinophils % 7.1 H Sodium 136.9 L Glucose 173 H Urine Glucose (UA) 50 H Discharge <CHAPARRO ROBERTSON - Last Filed: 10/19/16 22:33> <YULIYA RAI - Last Filed: 10/20/16 22:54> - Discharge Clinical Impression: Peripheral edema, Muscle spasm Condition: Stable Disposition: HOME, SELF-CARE Additional Instructions: Low Back Pain Three out of every four people will have an episode of disabling back pain during their lifetime. Most commonly the pain is due to straining of the muscles and ligaments in the low back. Usual treatment includes: (1) Rest on a firm surface. Avoid lying on your stomach. (2) Ice pack the painful area. After a few days, gentle heat may be used intermittently to relax the area, or ice packs can be continued. (3) Medication may be needed -- muscle relaxers and antiinflammatory medicines are commonly used. (4) As the back improves, exercises are prescribed to strengthen the back and abdominal muscles. Your doctor will advise you on the proper care for your back at each stage in your recovery. You may be better in a few days -- or healing may take several weeks. If new symptoms of a "herniated disc" (radiation of pain, numbness, or tingling down the back of the leg or weakness in the leg) occur, you should be re-examined. Further testing may be necessary. Swelling in your legs but it is not associated with fluid in your lungs or abnormal kidney function. Make sure you are elevating her legs throughout the day follow-up with your primary care physician on Friday follow-up with your pain specialist and neurosurgeon for your back issues return for increasing worsening or new symptoms Prescriptions: Methocarbamol [Robaxin 500 mg Tablet] 500 mg PO BID #12 tablet Scribe Attestation: 10/19/16 19:43 I personally performed the services described in the documentation reviewed the documentation recorded by my scribe in my presence and it accurately and completely records my words and actions (YULIYA RAI) Scribe Documentation - Scribe Written by Rosy:: Rosy Devlin 10/19/16 22:39 acting as scribe for :: Cecelia <CHAPARRO ROBERTSON - Last Filed: 10/19/16 22:33>
[2016-10-19 17:49] LABS: ABSOLUTE EOSINOPHILS # (AUTO) 0.4 10^3/uL (0.0-0.6); ABSOLUTE LYMPHOCYTES (AUTO) 2.5 10^3/uL (0.5-4.7); ABSOLUTE MONOCYTES (AUTO) 0.7 10^3/uL (0.1-1.4); ABSOLUTE NEUT (AUTO) 2.5 10^3/uL (1.7-8.2); BASOPHILS % (AUTO) 0.6 % (0-2); EOSINOPHILS % (AUTO) 7.1 % (0-6); HEMATOCRIT 39.4 % (37.9-51.0); HEMOGLOBIN 13.5 g/dL (13.5-17.0); HGB HCT DIFFERENCE 1.1; LYMPHOCYTES % (AUTO) 40.9 % (13-45); MEAN CORPUSCULAR HEMOGLOBIN 30.4 pg (27.0-33.4); MEAN CORPUSCULAR HGB CONC 34.3 g/dL (32.0-36.0); MEAN CORPUSCULAR VOLUME 89 fl (80-97); RED BLOOD COUNT 4.44 10^6/uL (4.35-5.55); RED CELL DISTRIBUTION WIDTH 13.8 % (11.5-14.0); SEGMENTED NEUTROPHILS % (AUTO) 40.4 % (42-78); WHITE BLOOD COUNT 6.2 10^3/uL (4.0-10.5)
[2016-10-19 17:53] LABS: APPEARANCE,URINE SLIGHTLY-CLOUDY; BILIRUBIN,URINE NEGATIVE (NEGATIVE); GLUCOSE, URINE 50 mg/dL (NEGATIVE); KETONES,URINE NEGATIVE (NEGATIVE); LEUKOCYTE ESTERASE,URINE NEGATIVE (NEGATIVE); NITRITE,URINE NEGATIVE (NEGATIVE); PROTEIN,URINE NEGATIVE (NEGATIVE); URINE SPECIFIC GRAVITY 1.016; UROBILINOGEN,URINE NEGATIVE mg/dL (<2.0)
[2016-10-19 18:06] LABS: ALANINE AMINOTRANSFERASE 29 U/L (21-72); ALBUMIN 3.8 g/dL (3.5-5.0); ALKALINE PHOSPHATASE 84 U/L (38-126); ANION GAP 7 (5-19); ASPARTATE AMINO TRANSFERASE 20 U/L (17-59); BILIRUBIN,DIRECT 0.3 mg/dL (0.0-0.4); BILIRUBIN,TOTAL 0.4 mg/dL (0.2-1.3); BLOOD UREA NITROGEN 10 mg/dL (7-20); CALCIUM 9.2 mg/dL (8.4-10.2); CARBON DIOXIDE 29 mmol/L (22-30); CHLORIDE 101 mmol/L (98-107); GLUCOSE 173 mg/dL (75-110); POTASSIUM 4.9 mmol/L (3.6-5.0); SODIUM 136.9 mmol/L (137-145); TOTAL PROTEIN 6.8 g/dL (6.3-8.2)
== END 2016-10-19 20:01 | disposition home or self-care (01) ==
LOC: ER 15:58
DX: R60.0 Localized edema (principal); M62.838 Other muscle spasm; M51.26 Other intervertebral disc displacement, lumbar region; G89.29 Other chronic pain; I10 Essential (primary) hypertension; R39.15 Urgency of urination; F17.200 Nicotine dependence, unspecified, uncomplicated; Z79.891 Long term (current) use of opiate analgesic; Z88.5 Allergy status to narcotic agent; Z88.8 Allergy status to other drugs, medicaments and biological substances; Z87.442 Personal history of urinary calculi; Z79.899 Other long term (current) drug therapy
CPT/HCPCS: 36415; 80053; 81001; 83880; 85025; 99284